=== PATIENT | female | born 1960 | race Caucasian/White ===

== ENCOUNTER 2021-11-30 17:10 | Emergency (ER) | payer OTHER, MEDICARE ==
[~2021-11-30 17:10] MED LIST: CIPRO500 MG PO; EFFEXOR XR75 MG PO; FLEXERIL10 MG PO; K-DUR20 MEQ PO; LASIX40 MG PO; NEXIUM40 MG PO; PREDNISONE 10MG10 MG PO; PROZAC20 MG PO; VENTOLIN (2.5 MG/3 M NEB; VIBRAMYCIN100 MG PO; XANAX1 MG PO
[2021-11-30] MEDS ORDERED: MEDROL 4MG DOSEP4 MG PO (20:57)
[2021-11-30] MEDS ORDERED: CYCLOBENZAPRINE10 MG PO (20:57)
== END 2021-11-30 21:05 | disposition home or self-care (01) ==
LOC: FER 17:10
DX: S13.4XXA Sprain of ligaments of cervical spine, initial encounter (principal); M25.512 Pain in left shoulder; R51.9 Headache, unspecified; I10 Essential (primary) hypertension; Z88.1 Allergy status to other antibiotic agents; V69.69XA Unspecified occupant of heavy transport vehicle injured in collision with other motor vehicles in traffic accident, initial encounter
CPT/HCPCS: 70450; 72125; 73030